=== PATIENT | male | born 1950 | race Caucasian/White ===

== ENCOUNTER 2016-12-23 12:56 | Outpatient (CLI) | payer MEDICARE, OTHER | END 2016-12-23 12:57 | disposition home or self-care (01) | DX: D68.59 Other primary thrombophilia (principal); I10 Essential (primary) hypertension; Z12.5 Encounter for screening for malignant neoplasm of prostate; M77.12 Lateral epicondylitis, left elbow | CPT/HCPCS: 36415; 80053; 80061; 85025; G0103 ==

== ENCOUNTER 2017-08-22 23:01 | Emergency (ER) | payer MEDICARE, OTHER ==
[2017-08-22 23:22] LABS: BILIRUBIN,URINE NEGATIVE (NEGATIVE)
[2017-08-22 23:28] LABS: BASOPHILS % (AUTO) 0.7 %; EOSINOPHILS # (AUTO) 0.3 10^3/uL (0.0-0.7); EOSINOPHILS % (AUTO) 5.2 %; HCT - HEMATOCRIT 48.6 % (42.0-52.0); HGB - HEMOGLOBIN 16.3 g/dL (14.0-18.0); LYMPHOCYTES # (AUTO) 1.1 10^3/uL (1.5-3.5); LYMPHOCYTES % (AUTO) 19.4 %; MEAN CORPUSCULAR HEMOGLOBIN 29.9 pg (27.0-31.0); MEAN CORPUSCULAR HGB CONC 33.4 g/dL (32.0-36.0); MEAN CORPUSCULAR VOLUME 89.3 fL (80.0-94.0); MEAN PLATELET VOLUME 6.6 fL (7.4-11.4); MONOCYTES # (AUTO) 0.9 10^3/uL (0.0-1.0); MONOCYTES % (AUTO) 15.7 %; NEUTROPHILS # (AUTO) 3.3 10^3/uL (1.5-6.6); NUCLEATED RED BLOOD CELLS AUTO 0.1 /100WBC; RED BLOOD COUNT 5.44 10^6/uL (4.70-6.10); RED CELL DISTRIBUTION WIDTH 12.9 % (12.0-15.0); UNCORRECTED WHITE BLOOD COUNT 5.6 x10^3/uL; WHITE BLOOD COUNT 5.6 x10^3/uL (4.8-10.8)
[2017-08-22 23:32] LABS: UA CHARGE (STRIP ONLY) YES; UR CULTURE IF IND NOT INDICATED
[2017-08-22 23:38] LABS: ALBUMIN/GLOBULIN RATIO 1.2 (1.0-2.2); BILIRUBIN,TOTAL 0.6 mg/dL (0.2-1.0); CALCIUM 9.3 mg/dL (8.5-10.3); CREATININE 1.3 mg/dL (0.6-1.2); TOTAL PROTEIN 8.1 g/dL (6.7-8.2)
[2017-08-22] MEDS ORDERED: SODIUM CHLORIDE 0.9% 1,000 ML IV ONE (23:52)
[2017-08-23] MEDS ORDERED: IOPAMIDOL-300 100 ML VIAL ONE (00:03)
[2017-08-23] MEDS ORDERED: IOPAMIDOL-300 100 ML VIAL IVP ONE (00:20)
[2017-08-23 00:53] VITALS: BP 155/94
--- NOTE | 2017-08-23 01:00 | CT Preliminary Report ---
Exam: CT ABDOMEN/PELVIS W/ IMPRESSION: 1. Severe sigmoid diverticulosis without evidence of diverticulitis. 2. No bowel obstruction. There is a average to moderate retained colon fecal material, which could be from constipation in the appropriate setting. 3. Moderate prostate hypertrophy. No evident kidney stones or hydronephrosis. Contracted gallbladder without evident calcified stones. [facility] SITE ID: [id number]
--- NOTE | 2017-08-23 01:14 | ED Physician Documentation ---
PD HPI ABD PAIN - Stated complaint Stated Complaint: ABD PAIN - Chief complaint Chief Complaint: Abd Pain - History obtained from History obtained from: Patient - History of Present Illness Timing - details: Gradual onset, Still present Quality: Cramping, Aching, Sharp Location: LLQ Worsened by: Eating, Position, Palpation Associated symptoms: Nausea, Constipation, Dysuria. No: Fever, Vomiting, Diarrhea Similar symptoms before: Work up / diagnostics, Treatment Recently seen: Clinic - Additional information Additional information: Patient is a 67 year old male with a history of diverticulosis and who had recently been treated by diverticulitis who is presenting to the emergency department for llq pain. Patient states that he finished a 10 day course of antibiotics about a week ago and he had been feeling well. He states that tonight he started to develop pain in his left lower quadrant, and had increased urinary frequency so he came to the emergency department for evaluation. Review of Systems Constitutional: denies: Fever, Chills Eyes: reports: Reviewed and negative Ears: reports: Reviewed and negative Nose: reports: Reviewed and negative Throat: reports: Reviewed and negative Cardiac: denies: Chest pain / pressure, Palpitations, Calf pain Respiratory: denies: Dyspnea, Cough, Wheezing GI: reports: Abdominal Pain, Nausea, Constipation. denies: Vomiting, Diarrhea : reports: Frequency. denies: Dysuria, Discharge Skin: denies: Rash, Lesions Musculoskeletal: denies: Back pain, Extremity pain Neurologic: denies: Generalized weakness, Focal weakness, Numbness Immunocompromised: denies: Immunocompromised PD PAST MEDICAL HISTORY - Past Medical History Past Medical History: Yes Cardiovascular: Hypertension, Deep vein thrombosis - Past Surgical History Past Surgical History: No - Present Medications Home Medications: Ambulatory Orders Medication Instructions Recorded Confirmed Amlodipine Besylate 1 tab PO DAILY 08/22/17 08/22/17 Metoprolol Tartrate 1 tab PO DAILY 08/22/17 08/22/17 Rivaroxaban [Xarelto] 1 tab PO DAILY 08/22/17 08/22/17 - Allergies Allergies/Adverse Reactions: Allergies Allergy/AdvReac Type Severity Reaction Status Date / Time No Known Drug Allergies Allergy Verified 08/22/17 23:04 - Social History Does the pt smoke?: No Smoking Status: Never smoker Does the pt drink ETOH?: Yes ETOH Use: Wine, Beer, Liquor Does the pt have substance abuse?: No - Immunizations Immunizations are current?: Yes - POLST Patient has POLST: No PD ED PE NORMAL - Vitals Vital signs reviewed: Yes - General General: Alert and oriented X 3, No acute distress - HEENT HEENT: Atraumatic, PERRL, Pharynx benign - Neck Neck: Supple, no meningeal sign, No JVD - Cardiac Cardiac: RRR, No murmur - Respiratory Respiratory: No respiratory distress, Clear bilaterally - Back Back: No CVA TTP - Derm Derm: Normal color, Warm and dry, No rash - Extremities Extremities: No deformity, No tenderness to palpate, No edema - Neuro Neuro: Alert and oriented X 3, No motor deficit, No sensory deficit, Normal speech - Psych Psych: Normal mood, Normal affect PD ED PE EXPANDED - Abdomen Abdomen: Tender to palpation, LLQ. No: Rebound, Guarding Results - Vitals Vitals: Vital Signs - 24 hr 08/22/17 08/23/17 23:05 00:52 Temperature 36.9 C 36.8 C Heart Rate 99 89 Respiratory 18 16 Rate Blood Pressure 150/90 H 155/94 H O2 Saturation 96 94 Oxygen O2 Source Room air - Labs Labs: Laboratory Tests 08/22/17 08/22/17 08/22/17 23:10 23:15 23:15 WBC 5.6 RBC 5.44 Hgb 16.3 Hct 48.6 MCV 89.3 MCH 29.9 MCHC 33.4 RDW 12.9 Plt Count 209 MPV 6.6 L Neut # 3.3 Lymph # 1.1 L Mcclain # 0.9 Eos # 0.3 Baso # 0.0 Absolute Nucleated RBC 0.01 Nucleated RBC % 0.1 Sodium 135 Potassium 4.0 Chloride 102 Carbon Dioxide 25 Anion Gap 8.0 BUN 20 Creatinine 1.3 H Estimated GFR (MDRD) 55 L Glucose 192 H Calcium 9.3 Total Bilirubin 0.6 AST 21 ALT 28 Alkaline Phosphatase 62 Total Protein 8.1 Albumin 4.4 Globulin 3.7 Albumin/Globulin Ratio 1.2 Lipase 37 Urine Color YELLOW Urine Clarity CLEAR Urine pH 6.0 Ur Specific [place] 1.010 Urine Protein NEGATIVE Urine Glucose (UA) NEGATIVE Urine Ketones NEGATIVE Urine Occult Blood NEGATIVE Urine Nitrite NEGATIVE Urine Bilirubin NEGATIVE Urine Urobilinogen 0.2 (NORMAL) Ur Leukocyte Esterase NEGATIVE Ur Microscopic Review NOT INDICATED Urine Culture Comments NOT INDICATED - Rads (name of study) ct abdomen and pelvis Radiology: Final report received (diverticulosis without diverticulitis, constipation) PD MEDICAL DECISION MAKING - ED course Complexity details: reviewed old records, reviewed results, re-evaluated patient , considered differential, d/w patient, d/w family ED course: Patient was seen and examined at bedside. IV access was gained and labs were drawn. patient's pain was minimal. Patient's urinalysis was within normal limits. Patient was sent for imaging. When patient returned the results were reviewed and showed constipation but no other acute abnormalities. Patient required no further work up and was stable for discharge with outpatient follow up. Departure - Departure Disposition: Home, Self Care Clinical Impression: Abdominal pain, Constipation Condition: Good Instructions: ED Constipation Follow-Up: José Rose MD [Primary Care Provider] - As Needed Comments: Your diagnostics today were within normal limits. there were no major abnormalities on your diagnostics but you were found to be constipated. You should increase your water intake and you fruits, vegetables and fiber intake. You do have multiple diverticulosis so you are at high risk for getting diverticulitis again. You should follow up with your pmd if you develop any fever or chills. You may return to the emergency department at any time for new , worsening or uncontrollable symptoms.
--- NOTE | 2017-08-23 01:17 | CT Report ---
EXAM: CT ABDOMEN AND PELVIS EXAM DATE: 08/23/2017 12:30 AM. CLINICAL HISTORY: Left lower quadrant pain, history of diverticulitis. COMPARISONS: None. TECHNIQUE: Routine helical CT imaging was performed through the abdomen and pelvis. IV contrast: 100 mL Isovue-300. Enteric contrast: No. Reconstructions: Coronal and sagittal. In accordance with CT protocol optimization, one or more of the following dose reduction techniques w ere utilized for this exam: automated exposure control, adjustment of mA and/or KV based on patient s ize, or use of iterative reconstructive technique. FINDINGS: ABDOMEN: Liver: No significant abnormality. Stomach/Distal Esophagus: No significant abnormality. Gallbladder: Contracted without evident calcified stones. Bile Ducts: No significant abnormality. Pancreas: No significant abnormality. Spleen: No significant abnormality. Kidneys: No solid appearing lesion. No hydronephrosis. Adrenals: No significant abnormality. Bowel: No obstruction. Average to moderate fecal residual. There is severe sigmoid diverticulosis. Ho wever no evidence of diverticulitis demonstrated at this time. Appendix: Appendix could not be identified with certainty. No secondary evidence of appendicitis. Lymph Nodes: No pathologically enlarged nodes. Vasculature: Normal caliber aorta. Fluid: No significant free fluid. Abdominal Wall: No significant abnormality. Other: No significant abnormality. PELVIS: Prostate and Seminal Vesicles: There is moderate enlargement of the prostate. Bladder: No significant abnormality. Lymph Nodes: No pathologically enlarged nodes. Fluid: No significant free fluid. Other: None. BONES: No suspicious bony lesions. There is moderate to severe multilevel degenerative change within the spine. LOWER CHEST: No significant consolidation or effusion. IMPRESSION: 1. Severe sigmoid diverticulosis without evidence of diverticulitis. 2. No bowel obstruction. There is average to moderate retained colon fecal material, which could be f rom constipation in the appropriate setting. 3. Moderate prostate hypertrophy. No evident kidney stones or hydronephrosis. Contracted gallbladder without evident calcified stones. [facility] Referring Provider Line: [phone] SITE ID: [id number]
== END 2017-08-23 01:25 | disposition home or self-care (01) ==
LOC: ED 23:01
DX: R10.32 Left lower quadrant pain (principal); K59.00 Constipation, unspecified; I10 Essential (primary) hypertension; Z86.718 Personal history of other venous thrombosis and embolism
CPT/HCPCS: 36415; 74177; 80053; 81003; 83690; 85025; 96360; 99284; Q9967; 81001; 87086

== ENCOUNTER 2019-11-14 13:07 | Outpatient (CLI) | payer MEDICARE, OTHER ==
[2019-11-14 18:41] LABS: BASOPHILS % (AUTO) 0.8 %; EOSINOPHILS # (AUTO) 0.2 10^3/uL (0.0-0.7); EOSINOPHILS % (AUTO) 2.9 %; HGB - HEMOGLOBIN 16.5 g/dL (14.0-18.0); LYMPHOCYTES # (AUTO) 0.5 10^3/uL (1.5-3.5); LYMPHOCYTES % (AUTO) 10.4 %; MEAN CORPUSCULAR HEMOGLOBIN 29.3 pg (27.0-31.0); MEAN CORPUSCULAR HGB CONC 32.5 g/dL (32.0-36.0); MEAN CORPUSCULAR VOLUME 90.2 fL (80.0-94.0); MEAN PLATELET VOLUME 9.3 fL (7.4-11.4); MONOCYTES # (AUTO) 0.6 10^3/uL (0.0-1.0); MONOCYTES % (AUTO) 11.2 %; NEUTROPHILS # (AUTO) 3.9 10^3/uL (1.5-6.6); NEUTROPHILS % (AUTO) 74.3 %; PLT - PLATELET COUNT 206 10^3/uL (130-450); RED BLOOD COUNT 5.63 10^6/uL (4.70-6.10); RED CELL DISTRIBUTION WIDTH 12.2 % (12.0-15.0); WHITE BLOOD COUNT 5.2 x10^3/uL (4.8-10.8)
[2019-11-14 19:05] LABS: ALBUMIN 4.3 g/dL (3.2-5.5); ALBUMIN/GLOBULIN RATIO 1.3 (1.0-2.2); ALKALINE PHOSPHATASE 50 IU/L (42-121); ALT ALANINE AMINOTRANSFERASE 30 IU/L (10-60); AST ASPARTATE AMINOTRANSFERASE 23 IU/L (10-42); BILIRUBIN,TOTAL 1.2 mg/dL (0.2-1.0); BUN - BLOOD UREA NITROGEN 19 mg/dL (6-20); CALCIUM 9.4 mg/dL (8.5-10.3); CARBON DIOXIDE - CO2 27 mmol/L (21-32); CHLORIDE 94 mmol/L (101-111); CHOL/HDL RATIO 5.8 (<5.0); CHOLESTEROL 273 mg/dL; CREATININE 1.1 mg/dL (0.6-1.2); GFR - MDRD 67 (>89); GLUCOSE 271 mg/dL (70-100); HDL CHOLESTEROL 47 mg/dL; LDL CHOLESTEROL,CALCULATED 192 mg/dL; LDL/HDL RATIO 4.1 (<3.6); SODIUM 132 mmol/L (135-145); TOTAL PROTEIN 7.5 g/dL (6.7-8.2); VLDL CHOLESTEROL 34 mg/dL
== END 2019-11-14 23:59 | disposition home or self-care (01) ==
LOC: LAB.WCP 13:07
PROVIDERS: ATTEND Family Medicine
DX: I10 Essential (primary) hypertension (principal); R73.01 Impaired fasting glucose
CPT/HCPCS: 36415; 80053; 80061; 83721; 84443; 85025

== ENCOUNTER 2019-12-19 14:55 | Outpatient (CLI) | payer MEDICARE, OTHER ==
--- NOTE | 2019-12-19 15:41 | XRAY Report ---
Reason: LEFT WRIST INJURY Procedure Date: 12/19/2019 Accession Number: [id number] / [id number] Procedure: WCP - Wrist 4 View LT CPT Code: Final Report FULL RESULT: EXAM: LEFT WRIST RADIOGRAPHY EXAM DATE: 12/19/2019 02:55 PM. CLINICAL HISTORY: Continued left wrist pain status post trauma during a fall 2 weeks prior to this examination. COMPARISON: None. TECHNIQUE: 4 views. FINDINGS: Bones: Normal bone mineralization. No fracture. No focal bone lesion. Joints: Joint space narrowing with subchondral sclerosis involving the left first carpometacarpal joint, the scaphotrapezial joint and the scaphotrapezoid joint, compatible with osteoarthritis. There is osteoarthritis involving the left first interphalangeal joint. No subluxation. Soft Tissues: No appreciable soft tissue swelling. IMPRESSION: 1. No fracture or subluxation. 2. 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 [facility]
== END 2019-12-19 23:59 | disposition home or self-care (01) ==
LOC: DI.WCP 14:55
PROVIDERS: ATTEND Family Medicine
DX: M18.12 Unilateral primary osteoarthritis of first carpometacarpal joint, left hand (principal); M19.032 Primary osteoarthritis, left wrist

== ENCOUNTER 2020-04-12 11:00 | Outpatient (CLI) | payer MEDICARE, OTHER ==
[2020-04-12 18:56] LABS: BASOPHILS % (AUTO) 0.6 %; EOSINOPHILS # (AUTO) 0.2 10^3/uL (0.0-0.7); EOSINOPHILS % (AUTO) 3.7 %; HGB - HEMOGLOBIN 15.6 g/dL (14.0-18.0); LYMPHOCYTES # (AUTO) 0.7 10^3/uL (1.5-3.5); LYMPHOCYTES % (AUTO) 13.4 %; MEAN CORPUSCULAR HEMOGLOBIN 29.7 pg (27.0-31.0); MEAN CORPUSCULAR HGB CONC 32.3 g/dL (32.0-36.0); MEAN PLATELET VOLUME 9.3 fL (7.4-11.4); MONOCYTES # (AUTO) 0.7 10^3/uL (0.0-1.0); MONOCYTES % (AUTO) 12.3 %; NEUTROPHILS # (AUTO) 3.7 10^3/uL (1.5-6.6); NEUTROPHILS % (AUTO) 69.6 %; PLT - PLATELET COUNT 199 10^3/uL (130-450); RED BLOOD COUNT 5.25 10^6/uL (4.70-6.10); RED CELL DISTRIBUTION WIDTH 12.9 % (12.0-15.0); WHITE BLOOD COUNT 5.4 x10^3/uL (4.8-10.8)
[2020-04-12 19:15] LABS: CREATININE,URINE 74.7 mg/dL; MICROALBUM/CREATININE RATIO,UR 58.9 ug/mg (<30.0); MICROALBUMIN,URINE 4.4 mg/dL (0-300.0)
[2020-04-12 19:16] LABS: ALBUMIN 4.2 g/dL (3.2-5.5); ALBUMIN/GLOBULIN RATIO 1.4 (1.0-2.2); ALKALINE PHOSPHATASE 54 IU/L (42-121); ALT ALANINE AMINOTRANSFERASE 28 IU/L (10-60); AST ASPARTATE AMINOTRANSFERASE 20 IU/L (10-42); BILIRUBIN,TOTAL 1.1 mg/dL (0.2-1.0); BUN - BLOOD UREA NITROGEN 16 mg/dL (6-20); CALCIUM 9.4 mg/dL (8.5-10.3); CARBON DIOXIDE - CO2 28 mmol/L (21-32); CHLORIDE 99 mmol/L (101-111); CHOL/HDL RATIO 3.5 (<5.0); CHOLESTEROL 197 mg/dL; CREATININE 1.1 mg/dL (0.6-1.2); GLUCOSE 137 mg/dL (70-100); HDL CHOLESTEROL 56 mg/dL; LDL CHOLESTEROL,CALCULATED 124 mg/dL; LDL/HDL RATIO 2.2 (<3.6); SODIUM 135 mmol/L (135-145); TOTAL PROTEIN 7.1 g/dL (6.7-8.2); VLDL CHOLESTEROL 17 mg/dL
[2020-04-12 19:32] LABS: HB2 TOTAL 15.9 g/dL; HEMOGLOBIN A1C 0.92 g/dL; HEMOGLOBIN A1C % 7.4 % (4.6-6.2)
== END 2020-04-12 23:59 | disposition home or self-care (01) ==
LOC: LAB.WCP 11:00
PROVIDERS: ATTEND Family Medicine
DX: E11.9 Type 2 diabetes mellitus without complications (principal)
CPT/HCPCS: 36415; 80053; 80061; 82043; 82570; 83036; 83721; 84443; 85025

== ENCOUNTER 2020-05-20 07:00 | Outpatient (CLI) | payer MEDICARE, OTHER | END 2020-05-20 23:59 | disposition home or self-care (01) | LOC: LAB.R 07:00 | PROVIDERS: ATTEND Physician Assistant Medical | DX: R10.32 Left lower quadrant pain (principal) | CPT/HCPCS: 87086 ==

== ENCOUNTER 2020-05-20 08:00 | Outpatient (CLI) | payer MEDICARE, OTHER ==
[2020-05-20 18:04] LABS: BASOPHILS % (AUTO) 0.3 %; EOSINOPHILS # (AUTO) 0.1 10^3/uL (0.0-0.7); EOSINOPHILS % (AUTO) 1.4 %; HGB - HEMOGLOBIN 16.1 g/dL (14.0-18.0); LYMPHOCYTES # (AUTO) 0.9 10^3/uL (1.5-3.5); LYMPHOCYTES % (AUTO) 13.1 %; MEAN CORPUSCULAR HEMOGLOBIN 29.3 pg (27.0-31.0); MEAN CORPUSCULAR HGB CONC 32.6 g/dL (32.0-36.0); MONOCYTES % (AUTO) 15.1 %; NEUTROPHILS # (AUTO) 4.5 10^3/uL (1.5-6.6); NEUTROPHILS % (AUTO) 69.5 %; PLT - PLATELET COUNT 194 10^3/uL (130-450); RED BLOOD COUNT 5.49 10^6/uL (4.70-6.10); RED CELL DISTRIBUTION WIDTH 12.7 % (12.0-15.0); WHITE BLOOD COUNT 6.5 x10^3/uL (4.8-10.8)
[2020-05-20 18:36] LABS: ALBUMIN 4.5 g/dL (3.2-5.5); ALBUMIN/GLOBULIN RATIO 1.4 (1.0-2.2); BILIRUBIN,TOTAL 0.6 mg/dL (0.2-1.0); CALCIUM 9.8 mg/dL (8.5-10.3); CREATININE 1.1 mg/dL (0.6-1.2); TOTAL PROTEIN 7.8 g/dL (6.7-8.2)
[2020-05-20 18:56] LABS: MICROALBUM/CREATININE RATIO,UR 87.4 ug/mg (<30.0); MICROALBUMIN,URINE 14.6 mg/dL (0-300.0)
[2020-05-20 19:05] LABS: HB2 TOTAL 17.2 g/dL; HEMOGLOBIN A1C 0.92 g/dL
== END 2020-05-20 23:59 | disposition home or self-care (01) ==
LOC: LAB.WCP 08:00
PROVIDERS: ATTEND Family Medicine
DX: E11.9 Type 2 diabetes mellitus without complications (principal); R10.32 Left lower quadrant pain
CPT/HCPCS: 36415; 80053; 82043; 82570; 83036; 83690; 85025; 87086

== ENCOUNTER 2021-11-27 11:44 | Outpatient (CLI) | payer MEDICARE, OTHER ==
[2021-11-27 18:36] LABS: BASOPHILS % (AUTO) 0.7 %; CREATININE,URINE 69.7 mg/dL; EOSINOPHILS # (AUTO) 0.2 10^3/uL (0.0-0.7); EOSINOPHILS % (AUTO) 4.1 %; HCT - HEMATOCRIT 47.2 % (42.0-52.0); HGB - HEMOGLOBIN 15.7 g/dL (14.0-18.0); LYMPHOCYTES # (AUTO) 0.9 10^3/uL (1.5-3.5); LYMPHOCYTES % (AUTO) 16.3 %; MEAN CORPUSCULAR HEMOGLOBIN 29.7 pg (27.0-31.0); MEAN CORPUSCULAR HGB CONC 33.3 g/dL (32.0-36.0); MEAN CORPUSCULAR VOLUME 89.2 fL (80.0-94.0); MICROALBUM/CREATININE RATIO,UR 182.2 ug/mg (<30.0); MICROALBUMIN,URINE 12.7 mg/dL (0-300.0); MONOCYTES # (AUTO) 0.6 10^3/uL (0.0-1.0); MONOCYTES % (AUTO) 11.1 %; NEUTROPHILS # (AUTO) 3.7 10^3/uL (1.5-6.6); NEUTROPHILS % (AUTO) 67.6 %; PLT - PLATELET COUNT 218 10^3/uL (130-450); RED BLOOD COUNT 5.29 10^6/uL (4.70-6.10); RED CELL DISTRIBUTION WIDTH 12.5 % (12.0-15.0); WHITE BLOOD COUNT 5.4 x10^3/uL (4.8-10.8)
[2021-11-27 18:47] LABS: ALBUMIN 4.3 g/dL (3.2-5.5); ALBUMIN/GLOBULIN RATIO 1.4 (1.0-2.2); ALKALINE PHOSPHATASE 59 IU/L (42-121); ALT ALANINE AMINOTRANSFERASE 31 IU/L (10-60); AST ASPARTATE AMINOTRANSFERASE 23 IU/L (10-42); BILIRUBIN,TOTAL 0.8 mg/dL (0.2-1.0); BUN - BLOOD UREA NITROGEN 17 mg/dL (6-20); CALCIUM 9.6 mg/dL (8.5-10.3); CARBON DIOXIDE - CO2 29 mmol/L (21-32); CHLORIDE 97 mmol/L (101-111); CHOL/HDL RATIO 4.2 (<5.0); CHOLESTEROL 219 mg/dL; CREATININE 1.1 mg/dL (0.6-1.2); GFR - MDRD 66 (>89); GLUCOSE 195 mg/dL (70-100); HDL CHOLESTEROL 52 mg/dL; LDL CHOLESTEROL,CALCULATED 146 mg/dL; LDL/HDL RATIO 2.8 (<3.6); POTASSIUM 4.9 mmol/L (3.5-5.0); SODIUM 133 mmol/L (135-145); TOTAL PROTEIN 7.4 g/dL (6.7-8.2); TRIGLYCERIDES 105 mg/dL; VLDL CHOLESTEROL 21 mg/dL
[2021-11-27 18:53] LABS: THYROID STIMULATING HORMONE 2.44 uIU/mL (0.34-5.60)
[2021-11-27 20:15] LABS: ESTIMATED AVERAGE GLUCOSE 220 mg/dL (70-100); HEMOGLOBIN A1c% 9.3 % (4.27-6.07)
== END 2021-11-27 11:45 | disposition home or self-care (01) ==
LOC: LAB.N 11:44
PROVIDERS: ATTEND Physician Assistant Medical
DX: E78.5 Hyperlipidemia, unspecified (principal); E11.9 Type 2 diabetes mellitus without complications; I10 Essential (primary) hypertension
CPT/HCPCS: 36415; 80053; 80061; 82043; 82570; 83036; 83721; 84443; 85025

== ENCOUNTER 2023-01-22 11:55 | Outpatient (CLI) | payer MEDICARE, OTHER ==
[2023-01-22 17:45] LABS: BASOPHILS # (AUTO) 0.1 10^3/uL (0.0-0.1); EOSINOPHILS # (AUTO) 0.2 10^3/uL (0.0-0.7); EOSINOPHILS % (AUTO) 4.1 %; HCT - HEMATOCRIT 49.9 % (42.0-52.0); HGB - HEMOGLOBIN 16.3 g/dL (14.0-18.0); LYMPHOCYTES # (AUTO) 0.9 10^3/uL (1.5-3.5); LYMPHOCYTES % (AUTO) 14.4 %; MEAN CORPUSCULAR HEMOGLOBIN 29.3 pg (27.0-31.0); MEAN CORPUSCULAR HGB CONC 32.7 g/dL (32.0-36.0); MEAN CORPUSCULAR VOLUME 89.6 fL (80.0-94.0); MEAN PLATELET VOLUME 9.3 fL (7.4-11.4); MONOCYTES # (AUTO) 0.6 10^3/uL (0.0-1.0); NEUTROPHILS # (AUTO) 4.1 10^3/uL (1.5-6.6); NEUTROPHILS % (AUTO) 70.2 %; PLT - PLATELET COUNT 218 10^3/uL (130-450); RED BLOOD COUNT 5.57 10^6/uL (4.70-6.10); RED CELL DISTRIBUTION WIDTH 12.1 % (12.0-15.0); WHITE BLOOD COUNT 5.9 x10^3/uL (4.8-10.8)
[2023-01-22 18:05] LABS: ALBUMIN 4.2 g/dL (3.2-5.5); ALBUMIN/GLOBULIN RATIO 1.2 (1.0-2.2); ALKALINE PHOSPHATASE 61 IU/L (42-121); ALT ALANINE AMINOTRANSFERASE 28 IU/L (10-60); AST ASPARTATE AMINOTRANSFERASE 20 IU/L (10-42); BUN - BLOOD UREA NITROGEN 20 mg/dL (6-20); CALCIUM 9.6 mg/dL (8.5-10.3); CARBON DIOXIDE - CO2 29 mmol/L (21-32); CHLORIDE 98 mmol/L (101-111); CHOL/HDL RATIO 3.5 (<5.0); CHOLESTEROL 191 mg/dL; CREATININE 1.2 mg/dL (0.6-1.2); GFR - MDRD 60 (>89); GLUCOSE 279 mg/dL (70-100); HDL CHOLESTEROL 54 mg/dL; LDL CHOLESTEROL,CALCULATED 116 mg/dL; LDL/HDL RATIO 2.1 (<3.6); POTASSIUM 5.2 mmol/L (3.5-5.0); SODIUM 136 mmol/L (135-145); TOTAL PROTEIN 7.6 g/dL (6.7-8.2); TRIGLYCERIDES 107 mg/dL; URIC ACID 6.7 mg/dL (2.6-7.2); VLDL CHOLESTEROL 21 mg/dL
[2023-01-22 21:48] LABS: ESTIMATED AVERAGE GLUCOSE 335 mg/dL (70-100); HEMOGLOBIN A1c% 13.3 % (4.27-6.07)
== END 2023-01-22 11:56 | disposition home or self-care (01) ==
LOC: LAB.N 11:55
PROVIDERS: ATTEND Physician Assistant Medical
DX: E11.9 Type 2 diabetes mellitus without complications (principal); M10.9 Gout, unspecified
CPT/HCPCS: 36415; 80053; 80061; 83036; 83721; 84550; 85025

== ENCOUNTER 2023-05-31 11:25 | Outpatient (CLI) | payer MEDICARE, OTHER ==
[2023-05-31 18:16] LABS: ALBUMIN 4.2 g/dL (3.2-5.5); ALBUMIN/GLOBULIN RATIO 1.3 (1.0-2.2); ALKALINE PHOSPHATASE 54 IU/L (42-121); ALT ALANINE AMINOTRANSFERASE 30 IU/L (10-60); AST ASPARTATE AMINOTRANSFERASE 18 IU/L (10-42); BILIRUBIN,TOTAL 0.7 mg/dL (0.2-1.0); BUN - BLOOD UREA NITROGEN 23 mg/dL (6-20); CALCIUM 9.8 mg/dL (8.5-10.3); CARBON DIOXIDE - CO2 30 mmol/L (21-32); CHLORIDE 101 mmol/L (101-111); CHOL/HDL RATIO 2.8 (<5.0); CHOLESTEROL 156 mg/dL; CREATININE 1.3 mg/dL (0.6-1.3); GFR - MDRD 54 (>89); GLUCOSE 141 mg/dL (74-104); HDL CHOLESTEROL 56 mg/dL; LDL CHOLESTEROL,CALCULATED 85 mg/dL; LDL/HDL RATIO 1.5 (<3.6); POTASSIUM 4.9 mmol/L (3.5-4.5); SODIUM 133 mmol/L (135-145); TOTAL PROTEIN 7.4 g/dL (6.4-8.9); TRIGLYCERIDES 76 mg/dL (48-352); VLDL CHOLESTEROL 15 mg/dL
[2023-05-31 21:41] LABS: ESTIMATED AVERAGE GLUCOSE 171 mg/dL (70-100); HEMOGLOBIN A1c% 7.6 % (4.27-6.07)
== END 2023-05-31 11:26 | disposition home or self-care (01) ==
LOC: LAB.N 11:25
PROVIDERS: ATTEND Physician Assistant Medical
DX: E11.9 Type 2 diabetes mellitus without complications (principal)
CPT/HCPCS: 36415; 80053; 80061; 83036; 83721

== ENCOUNTER 2023-08-14 08:54 | Outpatient (CLI) | payer MEDICARE, OTHER ==
--- NOTE | 2023-08-16 09:39 | MRI Report ---
PROCEDURE: WRIST WO - LT INDICATIONS: SPRAIN OF LEFT WRIST TECHNIQUE: Noncontrast coronal proton density fast spin echo and T2 fast spin echo with fat saturation; coronal 3-D gradient echo, axial T1 spin echo and T2 fast spin echo with fat saturation, sagittal T1 spin ech o through the wrist. COMPARISON: Wrist radiograph dated 12/19/2019. FINDINGS: Image quality: Study is slightly degraded due to patient motion.. Bones and cartilage: The carpal bones are normally aligned. No bone marrow contusions or fractures. No evidence for avascular necrosis. Osteoarthritic changes are noted involving scaphotrapezial join t and first CMC joint with joint space narrowing, subchondral sclerosis and small marginal osteophyte formation. Subcortical cystic changes also noted involving first metacarpal base and adjacent distal portion of the trapezium. Carpal ligaments: The scapholunate ligament is thickened with intrasubstance T2 hyperintense signal. Slight widening of scapholunate interval is also seen. The lunotriquetral ligament is intact. In the absence of intra-articular contrast, the extrinsic carpal ligaments are not well identified. On sag ittal images, the pisohamate ligament appears intact. Triangular fibrocartilage complex: The triangular fibrocartilage appears intact. The adjacent menis fox homolog appears normal in the absence of intra-articular contrast. The extensor carpi ulnaris te ndon is thickened with intrasubstance T2 hyperintense signal at the level of ulnar styloid. Tendons and soft tissues: The carpal tunnel structures appear normal, including the median nerve. T he ulnar nerve appears normal within Guyon's canal. There is fluid distending tendon sheath of extens or carpi radialis longus and brevis tendons at the level of distal radius and proximal carpal row. Re st of the extensor tendons are intact. No soft tissue ganglion cysts. IMPRESSION: 1. Osteoarthritic changes involving scaphotrapezial joint and first CMC joint as above. No fracture o r dislocation. No evidence of avascular necrosis. 2. Suggestion of low to moderate grade partial thickness tear involving scapholunate ligament. No ful l-thickness ligament rupture. The lunotriquetral ligament is intact. 3. Triangular fibrocartilage complex is grossly intact. 4. Low-grade tenosynovitis involving extensor carpi radialis longus and brevis tendons at the level o f distal radius and proximal carpal row. Tendinosis and low-grade intrasubstance partial thickness te ar involving extensor carpi ulnaris tendon. Rest of the extensor and flexor tendons are grossly intac t. Reviewed by: Kee Modi MD on 08/16/2023 9:38 AM PDT Approved by: Kee Modi MD on 08/16/2023 9:38 AM PDT Station ID: [id number]
== END 2023-08-14 08:55 | disposition home or self-care (01) ==
LOC: DI 08:54
PROVIDERS: ATTEND Orthopaedic Surgery
DX: M19.031 Primary osteoarthritis, right wrist (principal); M18.11 Unilateral primary osteoarthritis of first carpometacarpal joint, right hand; M65.9 Synovitis and tenosynovitis, unspecified; S66.811A Strain of other specified muscles, fascia and tendons at wrist and hand level, right hand, initial encounter

== ENCOUNTER 2023-09-28 11:24 | Outpatient (CLI) | payer MEDICARE, OTHER ==
[2023-09-28 18:13] LABS: CALCIUM 10.1 mg/dL (8.5-10.3); CREATININE 1.2 mg/dL (0.6-1.3); POTASSIUM 4.8 mmol/L (3.5-4.5)
[2023-09-28 20:16] LABS: ESTIMATED AVERAGE GLUCOSE 189 mg/dL (70-100); HEMOGLOBIN A1c% 8.2 % (4.27-6.07)
== END 2023-09-28 11:25 | disposition home or self-care (01) ==
LOC: LAB.N 11:24
PROVIDERS: ATTEND Physician Assistant Medical
DX: E11.9 Type 2 diabetes mellitus without complications (principal)
CPT/HCPCS: 36415; 80048; 83036

== ENCOUNTER 2024-06-28 18:25 | Outpatient (CLI) | payer MEDICARE, OTHER ==
--- NOTE | 2024-06-29 13:00 | Ultrasound Report ---
PROCEDURE: Carotid Doppler Complete INDICATIONS: HIST OF CVA TECHNIQUE: Color and pulse Doppler interrogation was performed of both carotid systems, with image documentation and velocity measurements. COMPARISON: None. FINDINGS: Right side: Brachial blood pressure: 168/90 mm Hg. Common carotid artery peak systolic velocity: 82 cm/sec. Internal carotid artery peak systolic velocity: 44 cm/sec. Internal carotid artery end diastolic velocity: 14 cm/sec. External carotid artery peak systolic velocity: 69 cm/sec. ICA/CCA peak systolic ratio: 0.5 . Wisdom scale imaging description: Calcified and noncalcified plaque in the carotid bulb extending into the external carotid artery. Waveforms are normally maintained. Percent internal carotid artery stenosis: Less than 50%. Vertebral artery: Flow direction is antegrade. Left side: Brachial blood pressure: 162/92 mm Hg. Common carotid artery peak systolic velocity: 67 cm/sec. Internal carotid artery peak systolic velocity: 61 cm/sec. Internal carotid artery end diastolic velocity: 17 cm/sec. External carotid artery peak systolic velocity: 65 cm/sec. ICA/CCA peak systolic ratio: 0.9 . Wisdom scale imaging description: Minor plaque at the carotid bulb. The waveforms remain normal. Percent internal carotid artery stenosis: Less than 50%. Vertebral artery: Flow direction is antegrade. IMPRESSION: No hemodynamically significant stenosis in either carotid system. Antegrade vertebral artery flow bilaterally. The estimate of stenosis included in the report of the imaging study was calculated using the [facility]-end orsed standards of carotid artery stenosis. Reviewed by: Caren Aguero MD on 06/29/2024 12:58 PM PDT Approved by: Caren Aguero MD on 06/29/2024 12:58 PM PDT Station ID: [id number]
== END 2024-06-28 18:26 | disposition home or self-care (01) ==
LOC: DI 18:25
PROVIDERS: ATTEND Family Medicine
DX: Z09 Encounter for follow-up examination after completed treatment for conditions other than malignant neoplasm (principal); Z86.73 Personal history of transient ischemic attack (TIA), and cerebral infarction without residual deficits
CPT/HCPCS: 93880

== ENCOUNTER 2024-07-27 11:02 | Outpatient (CLI) | payer MEDICARE, OTHER ==
[2024-07-27 17:42] LABS: BASOPHILS # (AUTO) 0.1 10^3/uL (0.0-0.1); BASOPHILS % (AUTO) 0.7 %; EOSINOPHILS # (AUTO) 0.3 10^3/uL (0.0-0.7); EOSINOPHILS % (AUTO) 3.5 %; HGB - HEMOGLOBIN 15.4 g/dL (14.0-18.0); LYMPHOCYTES % (AUTO) 12.2 %; MEAN CORPUSCULAR HEMOGLOBIN 29.2 pg (27.0-31.0); MEAN CORPUSCULAR HGB CONC 32.8 g/dL (32.0-36.0); MEAN PLATELET VOLUME 8.9 fL (7.4-11.4); MONOCYTES # (AUTO) 0.9 10^3/uL (0.0-1.0); MONOCYTES % (AUTO) 10.3 %; NEUTROPHILS % (AUTO) 72.2 %; PLT - PLATELET COUNT 220 10^3/uL (130-450); RED BLOOD COUNT 5.28 10^6/uL (4.70-6.10); RED CELL DISTRIBUTION WIDTH 12.3 % (12.0-15.0); WHITE BLOOD COUNT 8.3 x10^3/uL (4.8-10.8)
[2024-07-27 17:56] LABS: CREATININE,URINE 95.4 mg/dL
[2024-07-27 18:01] LABS: ALBUMIN 4.5 g/dL (3.2-5.5); ALBUMIN/GLOBULIN RATIO 1.7 (1.0-2.2); ALKALINE PHOSPHATASE 61 IU/L (42-121); ALT ALANINE AMINOTRANSFERASE 32 IU/L (10-60); AST ASPARTATE AMINOTRANSFERASE 19 IU/L (10-42); BILIRUBIN,TOTAL 0.8 mg/dL (0.2-1.0); BUN - BLOOD UREA NITROGEN 16 mg/dL (6-20); CALCIUM 9.9 mg/dL (8.5-10.3); CARBON DIOXIDE - CO2 31 mmol/L (21-32); CHLORIDE 99 mmol/L (101-111); CHOL/HDL RATIO 2.7 (<5.0); CHOLESTEROL 131 mg/dL; CREATININE 1.2 mg/dL (0.6-1.3); GFR - MDRD 59 (>89); GLUCOSE 141 mg/dL (74-104); HDL CHOLESTEROL 49 mg/dL; LDL CHOLESTEROL,CALCULATED 63 mg/dL; LDL/HDL RATIO 1.3 (<3.6); POTASSIUM 4.6 mmol/L (3.5-4.5); SODIUM 136 mmol/L (135-145); TOTAL PROTEIN 7.1 g/dL (6.4-8.9); TRIGLYCERIDES 96 mg/dL; VLDL CHOLESTEROL 19 mg/dL
[2024-07-27 18:12] LABS: MICROALBUM/CREATININE RATIO,UR 633.1 ug/mg (<30.0); MICROALBUMIN,URINE 60.4 mg/dL
[2024-07-27 18:13] LABS: THYROID STIMULATING HORMONE 2.24 uIU/mL (0.34-5.60)
[2024-07-27 18:19] LABS: FERRITIN 365.2 ng/mL (23.9-336.2)
[2024-07-27 20:46] LABS: ESTIMATED AVERAGE GLUCOSE 174 mg/dL (70-100); HEMOGLOBIN A1c% 7.7 % (4.27-6.07)
== END 2024-07-27 11:03 | disposition home or self-care (01) ==
LOC: LAB.N 11:02
PROVIDERS: ATTEND Nurse Practitioner Family
DX: E11.9 Type 2 diabetes mellitus without complications (principal); K92.1 Melena; Z12.5 Encounter for screening for malignant neoplasm of prostate
CPT/HCPCS: 36415; 80053; 80061; 82043; 82570; 82728; 83036; 84443; 85025; G0103; 83721; 84153